=== PATIENT | female | born 1970 | race American Indian/Alaskan Native ===

== ENCOUNTER 2017-01-26 06:09 | Day surgery (SDC) | payer OTHER ==
[~2017-01-26] VITALS: Ht 170.2 cm; Wt 85.3 kg
[~2017-01-26 06:09] MED LIST: LEVORA-281 EACH PO; MIRENA1 EACH IY
--- NOTE | 2017-02-14 08:30 | OR ---
[facility] [address], [place] [address] Signed DATE OF OPERATION: 01/26/2017 SURGEON: Saray Arias MD PREOPERATIVE DIAGNOSIS: Embedded IUD. POSTOPERATIVE DIAGNOSES: 1. Embedded IUD. 2. Cervical stenosis. PROCEDURES: Cervical dilation, retrieval of IUD. ANESTHESIA: IV sedation. ESTIMATED BLOOD LOSS: Minimal. DRAINS: None. INDICATIONS AND FINDINGS: The patient is a 46-year-old female who has been using an IUD for control, which is . It was unable to be removed in the office even after trial of Cytotec cervical softening. At the time of surgery, exam under anesthesia revealed a normal-sized uterus. The IUD strings were not visible. The cervix was difficult to dilate. The cavity did sound to 8 cm. The IUD was retrieved easily after dilation of the cervix. DESCRIPTION OF PROCEDURE: The patient was prepped and draped in the dorsal lithotomy position. An open-sided speculum was placed. The anterior lip of the cervix was visualized and grasped with a single-tooth tenaculum. The cavity was then sounded to 8 cm. The endocervical canal was then dilated with some difficulty to a #7 dilator. At this point, polyp forceps were introduced and the IUD was retrieved without difficulty. The tenaculum was removed without any evidence of bleeding from the tenaculum sites. The speculum was removed. The patient was taken to the recovery room in good condition. Saray Arias MD Electronically Signed By: SARAY ARIAS MD 02/14/17 0830 PATIENT NAME: JAMESON ROSS OPERATIVE REPORT DATE OF : 72 PHYSICIAN: SARAY ARIAS MD REPORT #: [id number] REPORT IS CONFIDENTIAL AND NOT TO BE RELEASED WITHOUT AUTHORIZATION [address] [address] Signed [facility] /[id number] cc: [facility] Electronically Signed By: SARAY ARIAS MD 02/14/17 0830 PATIENT NAME: JAMESON ROSS OPERATIVE REPORT DATE OF : 72 PHYSICIAN: SARAY ARIAS MD REPORT #: [id number] REPORT IS CONFIDENTIAL AND NOT TO BE RELEASED WITHOUT AUTHORIZATION
== END 2017-01-26 08:41 | disposition home or self-care (01) ==
LOC: OPS 06:09 → DS 06:09
PROVIDERS: Obstetrics & Gynecology
PROC: 0UPD0HZ Removal of Contraceptive Device from Uterus and Cervix, Open Approach (ICD-10-PCS; principal; 2017-01-26 06:45)
DX: T83.39XA Other mechanical complication of intrauterine contraceptive device, initial encounter (principal); N88.2 Stricture and stenosis of cervix uteri; Z87.891 Personal history of nicotine dependence; Z88.0 Allergy status to penicillin; Z90.49 Acquired absence of other specified parts of digestive tract; Z79.899 Other long term (current) drug therapy
CPT/HCPCS: 00940; 84703; 85025; J1100; J1885; J2250; J2405; J2704; J2765; J3010; J7120

== ENCOUNTER 2021-04-29 06:25 | Day surgery (SDC) | payer BC, OTHER ==
[~2021-04-29] VITALS: Ht 170.2 cm; Wt 81.8 kg
[~2021-04-29 06:25] MED LIST changes: +DICLOFENAC SODI75 MG PO
--- NOTE | 2021-04-29 08:23 | NUR ---
04/29/21 0823 Leticia Gilmore 0819 PATIENT ARRIVES TO PACU UNRESPONSIVE TO VERBAL STIMULI. ORAL AIRWAY IN PLACE. MASK AT 8 LITERS.
[2021-04-29] MEDS ORDERED: HYDROCODON-ACE1 EA10 PO (08:24)
--- NOTE | 2021-04-29 08:58 | NUR ---
PT BACK TO DS RM 5 FROM PACU AWAKE AND ALERT. PT DENIES ANY NAUSEA AND IS PROVIDED COFFEE PER REQUEST. PT RATES PAIN 2/10 IN LEFT KNEE AND TOLERABLE BUT WOULD LIKE TO GET AHEAD OF THE PAIN. PT PROVIDED APPLE SAUCE AND DC CRITERIA EXPLAINED. CALL LIGHT WITHIN REACH.
--- NOTE | 2021-04-29 09:06 | NUR ---
REQUESTS PAIN MEDICINE 06/21 L KNEE.
--- NOTE | 2021-04-29 11:01 | NUR ---
[id number]: PT TOLERATES PO WELL WITH NO COMPLAINTS OF NAUSEA. PT HAS URGE TO VOID, SITS AT SIDE OF BED PRIOR TO STANDING. PT DENIES NAUSEA OR DIZZINESS WITH POSITION CHANGE, SLOWLY AMBULATES TO BATHROOM WITH RN ASSIST. PT ABLE TO VOID APPROX 500 MLS YELLOW, CLEAR URINE WITH NO PROBLEMS. PT BACK TO DS RM 5 AND REQUESTS TO GET DRESSED. [id number]: ICE BAG REFILLED. DC INSTRUCTIONS PRESENTED VERBALLY AND WRITTEN TO PT. PT AWARE OF PAIN MEDICATION E-SCRIPTED TO [facility] BY DR. FINLEY. IV REMOVED WNL, PRESSURE COBAN DRESSING PLACED AND PT ENCOURAGED TO REMOVE IN APPROX 15-20 MINUTES. PT DC FROM DS RM 5 VIA WC TO FRI[facility] TO HOME.
--- NOTE | 2021-04-30 07:41 | OR ---
[facility] [address], [place] [address] Signed DATE OF OPERATION: 04/29/2021 SURGEON: Elvis Couch MD PREOPERATIVE DIAGNOSIS: Medial meniscus tear, left knee. POSTOPERATIVE DIAGNOSIS: Medial meniscus tear, left knee. PROCEDURES PERFORMED: Left knee arthroscopy with partial meniscectomy. SPECIALIST ICU: None. ANESTHESIA: General anesthesia. BLOOD LOSS: Minimal. BRIEF HISTORY: Xiang is a 50-year-old female with pain and locking in her knee. Risks and benefits of operative treatment were discussed with her and she elected to proceed. Once consent was obtained, she was taken to the operating room. After adequate anesthesia, she was placed on operating room table. All downside pressure points well padded. The right leg was flexed, abducted, and externally rotated on a well-padded leg dutta. The left was placed in well-padded leg dutta with no tourniquet. The leg was prepped and draped in a standard sterile fashion. Portal surface was injected with 0.25% Marcaine with epinephrine. A standard inferolateral and superolateral portals were made and the scope was introduced. 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 Trochlea was relatively intact as were the medial and lateral gutters. ACL and PCL were intact. Lateral compartment was intact. Medial compartment showed no significant chondromalacia. There was a complex tear extending from the posterior horn around to the mid body. Electronically Signed By: ELVIS COUCH MD 04/30/21 0741 PATIENT NAME: XIANG ROSS OPERATIVE REPORT DATE OF : 72 REPORT #: [id number] PHYSICIAN: ELVIS COUCH MD PCP: RIAZ ESCOBEDO MD REPORT IS CONFIDENTIAL AND NOT TO BE RELEASED WITHOUT AUTHORIZATION [facility] [address] [place] [id number] Signed DESCRIPTION OF OPERATION: Standard inferomedial portal was made after localization using a spinal needle. The straight biter was then used to trim the meniscus tear back to a stable rim. This was then smoothed using shaver and feathered out anteriorly. All debris was evacuated. The scope was then withdrawn. Portals were closed with 3-0 nylon and dressed with Adaptic, ABD, and Diego wrap. She tolerated the procedure well. All sponge, needle, and instrument counts were correct. Elvis Couch MD [facility] /[id number] Copies: ~ Electronically Signed By: ELVIS COUCH MD 04/30/21 0741 PATIENT NAME: XIANG ROSS OPERATIVE REPORT DATE OF : 72 REPORT #: [id number] PHYSICIAN: ELVIS COUCH MD PCP: RIAZ ESCOBEDO MD REPORT IS CONFIDENTIAL AND NOT TO BE RELEASED WITHOUT AUTHORIZATION
== END 2021-04-29 10:45 | disposition home or self-care (01) ==
LOC: DS 06:25
PROVIDERS: ATTEND Specialist
PROC: 0SBD4ZZ Excision of Left Knee Joint, Percutaneous Endoscopic Approach (ICD-10-PCS; principal; 2021-04-29 07:40)
DX: S83.232A Complex tear of medial meniscus, current injury, left knee, initial encounter (principal); X58.XXXA Exposure to other specified factors, initial encounter
CPT/HCPCS: 36415; 84703; J0690; J1100; J1885; J2001; J2405; J2704; J3010; J7121